=== PATIENT | male | born 1995 | race American Indian/Alaskan Native ===

== ENCOUNTER 2021-10-14 12:28 | Emergency (ER) | payer SELFPAY ==
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
[2021-10-14 14:47] VITALS: BP 131/83
[2021-10-14] MEDS ORDERED: IBUPROFEN 600 MG TAB PO ONE (15:00)
== END 2021-10-14 15:36 | disposition home or self-care (01) ==
LOC: ED 12:28
DX: M79.652 Pain in left thigh (principal); Z79.899 Other long term (current) drug therapy; V87.7XXA Person injured in collision between other specified motor vehicles (traffic), initial encounter; Y93.89 Activity, other specified; Y92.488 Other paved roadways as the place of occurrence of the external cause; Y99.8 Other external cause status
CPT/HCPCS: 99283